=== PATIENT | male | born 1995 | race Caucasian/White ===

== ENCOUNTER 2019-01-20 23:09 | Emergency (ER) | payer OTHER ==
[~2019-01-20] VITALS: Ht 180.3 cm; Wt 71.2 kg
[2019-01-20 23:14] VITALS: Ht 180.3 cm; Wt 71.2 kg
[2019-01-21 03:53] VITALS: BP 140/80
== END 2019-01-21 03:53 | disposition home or self-care (01) ==
LOC: ED 23:09
DX: R06.00 Dyspnea, unspecified (principal); R06.02 Shortness of breath; R09.89 Other specified symptoms and signs involving the circulatory and respiratory systems
CPT/HCPCS: J7512; Q0092